=== PATIENT | female | born 1980 | race Caucasian/White ===

== ENCOUNTER 2017-05-29 06:44 | Emergency (ER) | payer BC ==
[~2017-05-29] VITALS: Ht 162.6 cm; Wt 119.3 kg
[2017-05-29 06:45] VITALS: BP_SYST 147
[2017-05-29 08:00] VITALS: BP_SYST 145
== END 2017-05-29 08:00 | disposition home or self-care (01) ==
LOC: SED 06:44
DX: H53.8 Other visual disturbances (principal)
CPT/HCPCS: 82962; 99282

== ENCOUNTER 2020-06-21 10:49 | Emergency (ER) | payer BC, OTHER ==
[~2020-06-21] VITALS: Ht 162.6 cm; Wt 93.0 kg
[2020-06-21 11:00] VITALS: BP_SYST 165
[2020-06-21] MEDS ORDERED: DIPH-TET-PERTUS Vaccine 0.5 ML VIAL (ADACEL) I.M. ONE (11:15)
[2020-06-21] MEDS ORDERED: BACITRACIN 1 GM OINT TP ONE ×3 (11:15→12:05)
[2020-06-21] MEDS ORDERED: LIDOCAINE 1% 10 MG/ML, 20 ML MDV INJ ONE (11:15)
[2020-06-21 12:49] VITALS: BP_SYST 154
== END 2020-06-21 12:49 | disposition home or self-care (01) ==
LOC: SED 10:49
DX: S81.011A Laceration without foreign body, right knee, initial encounter (principal); W18.39XA Other fall on same level, initial encounter; Y93.02 Activity, running; Y92.89 Other specified places as the place of occurrence of the external cause; Y99.8 Other external cause status
CPT/HCPCS: 12004; 73564; 90471; 90715; 99283; J2001